=== PATIENT | male | born 1950 | race African-American/Black ===

== ENCOUNTER 2017-12-31 05:17 | Observation (INO) | payer MEDICARE ==
[2017-12-18 08:30] VITALS: BP 146/81
[~2017-12-31] VITALS: Ht 180.3 cm; Wt 95.4 kg
[~2017-12-31 05:17] MED LIST: ATOR20TA9 PO; LISI-167 PO
[2017-12-31] MEDS ORDERED: LACTATED RINGERS 1,000 ML IV SCH (06:18)
[2017-12-31] MEDS ORDERED: ASPI-496 PO (06:20)
[2017-12-31] MEDS ORDERED: OXYcodone 5 MG/5 ML ORAL.SOL UDC PO PRN ×2 (06:30→09:30)
[2017-12-31] MEDS ORDERED: DIPHENHYDRAMINE 50 MG/ML, 1ML IVPush PRN (06:30)
[2017-12-31] MEDS ORDERED: PROMETHAZINE 25 MG SUPP PR PRN (06:30)
[2017-12-31] MEDS ORDERED: GABAPENTIN 300 MG CAPSULE PO ONE (06:30)
[2017-12-31] MEDS ORDERED: LABETALOL 5MG/ML, 20ML IV PRN (06:30)
[2017-12-31] MEDS ORDERED: HYDROmorphone 2 MG/ML, 1ML IV PRN (06:30)
[2017-12-31] MEDS ORDERED: LIDOCAINE-MPF 1%, 2ML INFIL ONE (06:30)
[2017-12-31] MEDS ORDERED: MEPERIDINE/PF 25MG/0.5ML IVPush PRN (06:30)
[2017-12-31] MEDS ORDERED: FENTANYL PF 100 MCG/2ML IV PRN (06:30)
[2017-12-31] MEDS ORDERED: ACETAMINOPHEN 500 MG TABLET PO ONE (06:30)
[2017-12-31] MEDS ORDERED: ONDANSETRON 2MG/ML, 2ML IV PRN ×2 (06:30→09:30)
[2017-12-31] MEDS ORDERED: KETOROLAC 60 MG/2 ML ONE (06:39)
[2017-12-31] MEDS ORDERED: TRANEXAMIC ACID 100 MG/ML, 10ML ONE ×4 (06:39→06:40)
[2017-12-31] MEDS ORDERED: ROPIvacaine/PF 0.2%, 20 ML ONE (06:40)
[2017-12-31] MEDS ORDERED: EPINEPHRINE 1 MG/ML, 1ML ONE (06:40)
[2017-12-31] MEDS ORDERED: SODIUM CHLORIDE 0.9% 100 ML ONE (06:40)
[2017-12-31] MEDS ORDERED: VANCOMYCIN 1,000 MG ONE (06:40)
[2017-12-31] MEDS ORDERED: PROPOFOL 50 ML ONE (07:18)
[2017-12-31] MEDS ORDERED: MIDAZOLAM 1 MG/ML, 2ML ONE (07:20)
[2017-12-31] MEDS ORDERED: FENTANYL PF 100 MCG/2ML ONE (07:35)
[2017-12-31] MEDS ORDERED: MAGNESIUM HYDROXIDE 8%, 30ML UDC PO PRN (09:30)
[2017-12-31] MEDS ORDERED: PROMETHAZINE 12.5 MG SUPP PR PRN (09:30)
[2017-12-31] MEDS ORDERED: ACETAMINOPHEN 325 MG TABLET PO PRN (09:30)
[2017-12-31] MEDS ORDERED: HYDROcodone/APAP 10/325 MG TABLET PO PRN (09:30)
[2017-12-31] MEDS ORDERED: morphine SULFATE 10 MG/ML, 1ML IV PRN (09:30)
[2017-12-31] MEDS ORDERED: ENOXAPARIN 40 MG/0.4 ML SQ SCH (09:30)
[2017-12-31] MEDS ORDERED: DIAZEPAM 5 MG TABLET PO PRN (09:30)
[2017-12-31] MEDS ORDERED: BISACODYL 10 MG SUPP PR PRN (09:30)
[2017-12-31] MEDS ORDERED: OXYcodone 5 MG/5 ML ORAL.SOL UDC ONE (09:38)
[2017-12-31] MEDS ORDERED: TRANEXAMIC ACID 100 MG/ML, 10ML IVPB ONE (10:00)
[2017-12-31] MEDS ORDERED: TRANEXAMIC ACID 1,000 MG in SODIUM CHLORIDE 0.9% 100 ML IV ONE (10:30)
[2017-12-31] MEDS ORDERED: CEFAZOLIN 2,000 MG in DEXTROSE 5% 50 ML IVPB SCH (11:00)
[2017-12-31 13:08] VITALS: BP 154/65
[2017-12-31] MEDS: CEFAZOLIN 2,000 MG in DEXTROSE 5% 50 ML IVPB SCH (15:38)
[2017-12-31] MEDS ORDERED: CEFAZOLIN 1,000 MG ONE (16:30)
[2017-12-31 19:25] VITALS: BP 151/81
[2017-12-31] MEDS ORDERED: ZOLPIDEM 5MG TABLET PO PRN (21:00)
[2017-12-31] MEDS: ASPIRIN 81 MG TABLET EC PO SCH (21:15)
[2017-12-31] MEDS ORDERED: CEFAZOLIN 2,000 MG in SODIUM CHLORIDE 0.9% 50 ML IVPB ONE (23:30)
[2017-12-31 23:36] VITALS: BP 155/69
[2018-01-01] MEDS: CEFAZOLIN 2,000 MG in DEXTROSE 5% 50 ML IVPB SCH (03:28)
[2018-01-01 04:29] VITALS: BP 132/64
[2018-01-01 06:59] VITALS: BP 165/87
[2018-01-01] MEDS: ASPIRIN 81 MG TABLET EC PO SCH (08:41)
[2018-01-01] MEDS ORDERED: OXYC5CAP2 PO (08:53)
[2018-01-01] MEDS ORDERED: CELE200C PO (08:53)
[2018-01-01] MEDS ORDERED: TRAM50TA2 PO (08:53)
[2018-01-01] MEDS ORDERED: ONDA4TAB10 PO (08:53)
[2018-01-01] MEDS ORDERED: DOCU-131 PO (08:53)
[2018-01-01] MEDS ORDERED: DOCUSATE 100 MG CAPSULE PO SCH (09:00)
[2018-01-01] MEDS ORDERED: LISINOPRIL 10 MG TABLET PO SCH (09:00)
== END 2018-01-01 11:43 | disposition home or self-care (01) ==
LOC: OUT 05:17 → ORIP 09:17 → 4NOR 10:33 → DCLOUNGE 01-01 11:25
PROVIDERS: ADMIT Orthopaedic Surgery; ATTEND Orthopaedic Surgery
DX: M17.11 Unilateral primary osteoarthritis, right knee (principal)
CPT/HCPCS: 27447; 73560; 96365; 96366; 97116; 97150; 97161; C1713; C1776; G0378; G8978; G8979; G8980; J0171; J0690; J1885; J2250; J2704; J2795; J7120; J3010; J3370